=== PATIENT | female | born 1945 | race Caucasian/White ===

== ENCOUNTER → 2024-05-13 10:22 | Outpatient (REF) | payer MEDICARE, OTHER, SELFPAY ==
[2024-05-13 11:01] LABS: % Basophils 0.6 % (0-2); % Eosinophils 1.3 % (0-6); % Immature Granulocytes 0.3 % (0-0.5); % Lymphocytes 24.4 % (20.5-51.1); % Monocytes 8.2 % (1.7-9.3); % Neutrophils 65.2 % (42.2-75.2); Absolute Eosinophils 0.1 10^3/uL (0-0.7); Absolute Lymphocytes 1.7 10^3/uL (1.2-3.4); Absolute Monocytes 0.6 10^3/uL (0.1-0.6); Absolute Neutrophils 4.5 10^3/uL (1.4-6.5); Hematocrit 37.9 % (37.0-47.0); Hemoglobin 12.9 g/dL (12.0-16.0); Mean Corpuscular Hgb 33.5 pg (27.0-31.0); Mean Corpuscular Volume 98.4 fL (81.0-99.0); Mean Platelet Volume 9.4 fL (7.4-10.4); Nucleated Red Blood Cells % 0 %; Platelet Count 254 10^3/uL (130-400); Red Blood Cell Count 3.85 10^6/uL (4.20-5.40); Red Cell Dist. Width 13.5 % (11.5-14.5)
[2024-05-13 11:09] LABS: INR 1.52; PT 18.4 Sec (11.4-14.6)
[2024-05-13 11:15] LABS: ALT (SGPT) 15 U/L (0-35); AST (SGOT) 24 U/L (14-36); Albumin 4.2 g/dl (3.5-5.0); Alkaline Phosphatase 65 U/L (38-126); Blood Urea Nitrogen 15 mg/dl (7-17); Calcium 9.4 mg/dl (8.4-10.2); Carbon Dioxide 27 mmol/L (22-30); Chloride 101 mmol/L (98-107); Glucose 102 mg/dl (70-99); Magnesium 1.9 mg/dl (1.6-2.3); Potassium 4.2 mmol/L (3.5-5.1); Sodium 136 mmol/L (135-145); Total Bilirubin 0.5 mg/dl (0.2-1.3); Total Protein 6.6 g/dl (6.3-8.2); eGFR > 60.00
== END ==
LOC: SDSPAT 10:22
PROVIDERS: ATTENDING PHYSICIAN Internal Medicine Cardiovascular Disease; FAMILY PHYSICIAN Nurse Practitioner Primary Care
DX: Z01.818 Encounter for other preprocedural examination (principal); I47.10 Supraventricular tachycardia, unspecified
CPT/HCPCS: 36415; 80053; 83735; 85025; 85610; 93005

== ENCOUNTER 2024-05-20 09:01 | Day surgery (SDC) | payer MEDICARE, OTHER, SELFPAY ==
[2024-05-20 09:39] LABS: PT 25.2 Sec (11.4-14.6)
[2024-05-20 10:06] VITALS: BMI 21.4
== END 2024-05-20 11:37 | disposition home or self-care (01) ==
LOC: CATH 09:01
PROVIDERS: ATTENDING PHYSICIAN Internal Medicine Cardiovascular Disease; FAMILY PHYSICIAN Nurse Practitioner Primary Care
DX: I08.1 Rheumatic disorders of both mitral and tricuspid valves (principal); I48.0 Paroxysmal atrial fibrillation; I10 Essential (primary) hypertension; E78.5 Hyperlipidemia, unspecified; E03.9 Hypothyroidism, unspecified; Z85.048 Personal history of other malignant neoplasm of rectum, rectosigmoid junction, and anus; Z79.01 Long term (current) use of anticoagulants
CPT/HCPCS: 93312; 93320; 93325; 85610

== ENCOUNTER 2024-05-22 07:56 | Day surgery (SDC) | payer MEDICARE, OTHER, SELFPAY ==
[2024-05-13 10:39] VITALS: BMI 21.9
[2024-05-22] VITALS (9 sets, daily range): BP systolic 119–153; BP diastolic 49–71; BMI 21.3
[2024-05-22 08:59] LABS: INR 1.07; PT 13.9 Sec (11.4-14.6)
[2024-05-22 11:57] LABS: ACT-LR - POC 271 Seconds (116-155)
[2024-05-22 13:05] LABS: ACT-LR - POC 390 Seconds (116-155)
--- NOTE | 2024-05-22 14:27 | ITS.CL.ABL ---
Telephone Appointment Clerk - Ablation
Ablation
Procedure Report:
ELECTROPHYSIOLOGY STUDY REPORT
Date of Procedure: May 22, 2024
Primary Care Provider: Dr Laly Dickens
Primary keno terminal operator: Dr Wendy Fink
INDICATION: SVT.
HISTORY:
Her history has included symptomatic SVT as well as symptomatic AF, poorly controlled with attempted medical therapy.
She had an EP study in [place] several years ago (2016) where she was noninducible. She then underwent EP study with us at [place] and again was noninducible for sustained arrhythmias but based on a tracing of her SVT (Outpatient rhythm
monitoring in 08/2019 demonstrated an episode of narrow QRS complex tachycardia at 220 bpm which lasted 27 minutes. There were no clearly discernible P waves. There was abrupt initiation and abrupt termination) and based on the finding of dual AV
zahida physiology she underwent slow pathway modification.
She did well for quite some time but then developed tachycardia symptoms. She underwent implantation of a loop recorder which documented atrial tachycardia as well as sustained self-terminating atrial fibrillation.She was started on beta-nino at
a dose of Toprol-XL 25 mg daily and was also placed on Eliquis. Due to ongoing symptoms she was placed on flecainide 50 mg twice daily. She continued to have disturbing symptoms and presents today for EP study and evaluation of her SVT. She
thought that this resulted in her feeling more anxious and she dropped the Toprol-XL to 12.5 mg daily. Evaluation of her loop recorder has subsequently showed 11 episodes of tachycardia the longest of which is 53 minutes (atrial tachycardia) as well
as 8 minutes of true atrial fibrillation in June 2023 which prompted the initiation of Eliquis 5 mg twice daily.
She then underwent EP study in October 29, 2023. PVI was completed and there were no inducible arrhythmias after PVI. Since that time she has developed recurrence of rapid heart beating sensation with her implanted monitor showing no atrial
fibrillation but demonstrating periods of atrial tachycardia.
She presents today for EP study evaluating her atrial tachycardia.
BASELINE RHYTHM: Sinus rhythm
PROCEDURE:
HRA, HIS, RVA and CS catheters were placed.
Baseline intracardiac measurements were obtained in sinus rhythm.
Programmed electrical stimulation was performed including burst pacing as well as delivery of decremental extrastimuli from the HRA, CS and RVA.
In the baseline state with delivery of atrial decremental extrastimuli short nonsustained bursts of atrial tachycardia (up to 6 beats) could be induced. Atrial cycle length during the short burst of atrial tachycardia is irregular, averaging
approximately 450 ms, periods of 2-1 AV conduction as well as dissociation from the His bundle electrogram excluding AV zahida dependent arrhythmia and consistent with an atrial tachycardia.
Isoproterenol infusion was begun and escalated and programmed electrical stimulation was repeated. Still only short burst of atrial tachycardia could be obtained. 3-D mapping with the [employer] multipolar grid catheter finds earliest atrial
activation at the interatrial septum slightly posterior and superior to the ostium of the coronary sinus. She then began having self initiating longer runs of atrial tachycardia again with the earliest activation at the right atrial interatrial
septum. Was then decided to perform transseptal puncture and evaluate left atrial activation. The intracardiac ultrasound catheter was positioned in the RA for continuous intracardiac ultrasound imaging.
Heparin bolus and infusion to target ACT at 300 -350 seconds was administered. Transseptal puncture was performed. This entailed advancing a sheath with dilator into the superior vena cava and withdrawing both (monitoring intracardiac ultrasound,
fluoroscopy and tip pressure) with the tip oriented toward the atrial septum. The fossa ovalis was engaged (indicated by sudden displacement of the sheath tip as well as tenting of the fossa seen on intracardiac ultrasound). Left atrial access
required a pass with the Brock[place]rough needle extended. Left atrial catheter position was confirmed by pressure monitoring as well as fluoroscopy. The sheath was advanced over the dilator and positioned in the left atrium. The multipolar mapping
catheter was initially positioned through the transseptal sheath for high density mapping. There continue to be self initiated and self terminating bursts of atrial tachycardia but inability to reliably induce any arrhythmias. With the self
initiating burst of atrial tachycardia limited mapping could be performed and demonstrated earliest left atrial activation at the interatrial septum across from the right atrial site. Comparison of activation mapping finds earliest activation at
the right atrium compared to the left atrium. At this location is certainly possible it could be noncoronary cusp of the aortic valve. Consideration was given to mapping the aortic valve however the self initiating episodes of atrial tachycardia
ceased. Programmed electrical stimulation was again performed on and off escalating dose isoproterenol and still no atrial tachycardia could be induced. At this point it was decided to ablate both the left and right atrial aspects of the mapped
atrial tachycardia. A 4 mm irrigated contact sensing RF ablation catheter was then substituted for the mapping catheter and RF energy was delivered to the early left atrial site. (Additionally, while mapping the left atrium, integrity of pulmonary
vein isolation was performed. There is ostial isolation of all the pulmonary veins. ). The catheters were removed from the left atrium and the right atrium was once again mapped creating a high density His cloud. Earliest left atrial activation
is approximately 0.5 to 1 cm just superior and posterior to the His cloud. RF energy was given at escalating power at the area of earliest right atrial activation of the mapped tachycardia. With RF energy delivery initially there are bursts of
atrial tachycardia but with continued RF energy delivery to this area no further burst of atrial tachycardia were observed. Careful attention was paid to A-V conduction and at no point was there any prolongation of the KS interval or AV block.
Once ablation was completed programmed electrical stimulation was again performed and no arrhythmias sustained or unsustained could be induced. There were no further runs of self initiated atrial tachycardia.
I.C.E. :
Pre-Ablation Post-Ablation
LVEF: 55 % 55 %
WMA: none none
Pericardial effusion: none none
COMPLICATIONS: None
SUMMARY:
- EPS with CS catheter
- EPS with drug infusion
- Transeptal puncture
- 3-d mapping
- Mapping/ablate SVT
- I.C.E.
There is poorly inducible atrial tachycardia. Inability to reliably induce the atrial tachycardia limited mapping and limits reliability with which success can be determined post ablation.
While ablation was performed at the left atrial and right atrial aspects of the interatrial septum and the tachycardia remained on inducible, it is possible the atrial tachycardia origin is the noncoronary cusp of the aortic valve but given
inability to induce the tachycardia and disappearance of spontaneous runs of atrial tachycardia, aortic valve mapping could not be performed.
RECOMMENDATIONS:
-Maintain beta-nino and flecainide at current doses
If there is recurrence of atrial arrhythmias given difficulty with inducing the tachycardia my recommendation would be either up titration of flecainide or consideration for sotalol
-Stop warfarin as she has not had any documented atrial fibrillation post ablation and mapping today finds durability of pulmonary vein ostial isolation nearly 8 months after her PVI.
Copy to:
Dr Laly Dickens
Dr Wendy Fink
[2024-05-22 15:09] LABS: ACT-LR - POC > 397 Seconds (116-155)
[2024-05-22 15:09] LABS: ACT-LR - POC > 397 Seconds (116-155)
== END 2024-05-22 17:35 | disposition home or self-care (01) ==
LOC: CATH 07:56
PROVIDERS: ATTENDING PHYSICIAN Internal Medicine Cardiovascular Disease; FAMILY PHYSICIAN Nurse Practitioner Primary Care
DX: I47.19 Other supraventricular tachycardia (principal); I48.0 Paroxysmal atrial fibrillation; I10 Essential (primary) hypertension; E78.5 Hyperlipidemia, unspecified; E03.9 Hypothyroidism, unspecified; Z85.048 Personal history of other malignant neoplasm of rectum, rectosigmoid junction, and anus; Z79.01 Long term (current) use of anticoagulants
CPT/HCPCS: 93662; C1732; C1730; C1894; C1766; C2630; C1892; 76937; 85347; 85610; 93005; 93462; 93623; 93653

== ENCOUNTER → 2024-09-24 06:39 | Day surgery (SDC) | payer MEDICARE, OTHER, SELFPAY | LOC: GI 06:39 | PROVIDERS: ATTENDING PHYSICIAN Student in an Organized Health Care Education/Training Program | DX: Z12.11 Encounter for screening for malignant neoplasm of colon (principal); Z85.048 Personal history of other malignant neoplasm of rectum, rectosigmoid junction, and anus; K57.30 Diverticulosis of large intestine without perforation or abscess without bleeding; K64.4 Residual hemorrhoidal skin tags; D12.2 Benign neoplasm of ascending colon | CPT/HCPCS: 45385; 88305 ==

== ENCOUNTER → 2024-10-18 10:29 | Outpatient (REF) | payer MEDICARE, OTHER, SELFPAY | LOC: MRI 10:29 | PROVIDERS: ATTENDING PHYSICIAN Nurse Practitioner Primary Care | DX: Z85.048 Personal history of other malignant neoplasm of rectum, rectosigmoid junction, and anus (principal); R47.89 Other speech disturbances; R41.3 Other amnesia | CPT/HCPCS: 70551 ==

== ENCOUNTER → 2024-10-23 13:42 | Outpatient (REF) | payer MEDICARE, OTHER, SELFPAY | LOC: HWWDC 13:42 | PROVIDERS: ATTENDING PHYSICIAN Nurse Practitioner Primary Care | DX: M85.80 Other specified disorders of bone density and structure, unspecified site (principal); Z12.31 Encounter for screening mammogram for malignant neoplasm of breast; E78.2 Mixed hyperlipidemia; M81.0 Age-related osteoporosis without current pathological fracture | CPT/HCPCS: 75571 ==

== ENCOUNTER → 2025-08-06 07:30 | Outpatient (REF) | payer MEDICARE, OTHER, SELFPAY | LOC: REG 07:30 | PROVIDERS: ATTENDING PHYSICIAN Nurse Practitioner Primary Care | DX: R82.90 Unspecified abnormal findings in urine (principal); R73.01 Impaired fasting glucose; E78.2 Mixed hyperlipidemia; I11.0 Hypertensive heart disease with heart failure; I36.9 Nonrheumatic tricuspid valve disorder, unspecified; Z79.899 Other long term (current) drug therapy | CPT/HCPCS: 36415; 93005 ==

== ENCOUNTER → 2025-09-03 09:59 | Outpatient (REF) | payer MEDICARE, OTHER, SELFPAY ==
[2025-09-03 10:32] LABS: Hematocrit 39.3 % (37.0-47.0); Hemoglobin 13.4 g/dL (12.0-16.0); Mean Corp Hgb Conc. 34.1 g/dL (33.0-37.0); Mean Corpuscular Volume 97.0 fL (81.0-99.0); Nucleated Red Blood Cells % 0 %; Platelet Count 300 10^3/uL (130-400); Red Cell Dist. Width 12.7 % (11.5-14.5)
[2025-09-03 10:59] LABS: ALT (SGPT) 14 U/L (0-35); AST (SGOT) 21 U/L (14-36); Albumin 4.3 g/dl (3.5-5.0); Alkaline Phosphatase 67 U/L (38-126); Blood Urea Nitrogen 10 mg/dl (7-17); Calcium 9.6 mg/dl (8.4-10.2); Carbon Dioxide 30 mmol/L (22-30); Chloride 100 mmol/L (98-107); Glucose 87 mg/dl (70-99); Potassium 4.9 mmol/L (3.5-5.1); Sodium 132 mmol/L (135-145); Total Protein 7.0 g/dl (6.3-8.2); eGFR > 60.00
== END ==
LOC: SDSPAT 09:59
PROVIDERS: ATTENDING PHYSICIAN Internal Medicine Cardiovascular Disease; FAMILY PHYSICIAN Nurse Practitioner Primary Care
DX: I47.10 Supraventricular tachycardia, unspecified (principal)
CPT/HCPCS: 36415; 80053; 85025; 93005

== ENCOUNTER 2025-09-23 12:30 | Day surgery (SDC) | payer MEDICARE, OTHER, SELFPAY ==
[2025-09-03 10:08] VITALS: BMI 19.7
[2025-09-23] VITALS (9 sets, daily range): BP systolic 115–162; BP diastolic 52–103; BMI 19.7
[2025-09-23] MEDS: VANCOCIN 200 IV (14:43)
--- NOTE | 2025-09-23 14:56 | ITS.CL.PACE ---
Senior Biostatistician/Group Leader - Pacemaker Implant
Pacemaker Implant
Procedure Report:
PACEMAKER IMPLANT REPORT
Primary Care Provider: Dr. Laly Schmid
Date of Procedure: September 23, 2025
Procedure:
Implantation of dual-chamber permanent pacemaker utilizing the left bundle branch for conduction system pacing
Indication/Diagnosis:
Non-reversible symptomatic bradycardia due to sinus node dysfunction.
HISTORY:
Recurrent symptomatic atrial tachyarrhythmias despite prior ablation. Symptomatic 6 sinus syndrome with up to 5 seconds symptomatic pauses has limited drug therapy attempts to control her atrial arrhythmias. This is included need to discontinue
flecainide as well as beta-nino which has resulted in worsened symptoms of atrial tachyarrhythmia. Clinically she has symptomatic sick sinus syndrome.
After informed consent was obtained, 'time out' was called and confirmed, the patient was prepped and draped in a sterile fashion. Lidocaine with epi was used for local anesthesia. Central venous access was obtained via subclavian venipuncture. An
incision was made along the left chest and a pre-pectoral pocket was formed. Using a Seldinger technique and peel-away sheaths, the pacing leads were placed under fluoroscopic guidance.
Fluoroscopy was used to determine likely anatomic site for left bundle branch pacing. The Medtronic C315 sheath was used to deliver the Medtronic 3830 Selectsecure pacing lead with the helix exposed just exposed from the sheath tip during continuous
monitoring when pacemapping the septum during gentle clockwise rotation to obtain a paced QRS morphology of a W pattern in lead V1. Once the suspected optimal site was identified, lead deployment was performed with several rapid rotations as paced
QRS morphology was intermittently monitored until a paced QRS complex in lead V1 demonstrated development of an R wave (qR).
Unipolar pacing impedance dropped by approximately 100-200 ohms suggesting it had reached the left ventricular subendocardium.
Stable VEgm injury current is present throughout final lead position including at end of case, suggesting there was no perforation through the septum into the LV cavity.
Unipolar pacing impedance is 800 Ohms
Unipolar pacing threshold is stable at 1.5 V @ 0.4 ms.
Final conduction system paced QRS complex duration is 100 ms
LVAT is 74 ms and peak V5 -> peak V1 timing is 35 ms
There is QRS transition to LVSP / selective LBBP during threshold testing
Right atrial lead was placed at the RAA.
Once testing (see below) showed adequate and stable function, the leads were secured using the suture sleeves. The pocket was liberally irrigated with antibiotic solution. The leads were connected to the generator header and the leads and
generator were placed within the pocket. Fluoroscopy confirmed stable lead position. The pocket was closed in the typical fashion.
Fluoroscopy was used to guide lead placement.
IMPLANTS:
Medtronic [id number], SN: [id number], Left Pectoral
RA: Medtronic 5076-45, SN: [id number], RAA
Left Bundle: Medtronic 3830 , SN:[id number], Interventricular septum at LBB
DEVICE TESTING:
Sensing: RA 1.6 mV, RV 8 mV
Capture: RA 1.25 V@0.4ms, RV 1 V@0.4ms
Ohms: RA 760, RV 670
FINAL PROGRAMMING
Ryan Pacing: AAIR+ 50-130 ppm
COMPLICATIONS:
None
CONCLUSIONS:
Successful implant of dual chamber permanent pacemaker utilizing Left Bundle Branch conduction system capture for ventricular resynchronization pacing.
RECOMMENDATIONS:
Reinitiate flecainide 50 mg twice daily and Toprol-XL 25 mg daily
Post-op care (tele, CXR, IV abx)
In-Office wound check in 5-7 days
Copy to:
Dr. Laly Schmid
--- NOTE | 2025-09-23 16:46 | ITS.CL.IMPLP ---
Microbiology Soil Scientist - Implant Loop
Implant Loop
Procedure Report:
LINQ IMPLANTED MONITOR REMOVAL
Date of Procedure: 09/23/2025
Primary Care Provider: Dr. Laly Schmid
PROCEDURES:
1. Removal of implanted loop recorder
INDICATION FOR PROCEDURE:
Loop Recorder has diagnosed symptomatic sick sinus syndrome with pauses of 5 seconds.
Permanent pacemaker has been implanted.
Loop recorder is no longer providing additional information.
After informed consent was obtained,'time out' was called and confirmed, the patient was prepped and draped in a sterile fashion.
SEDATION: Via the anesthesia department with conscious sedation
Lidocaine with epi was used for local anesthesia. An incision was made along the prior incision and the Linq monitor was carefully dissected from the pocket. The pocket was liberally irrigated with antibiotic solution. The pocket was closed in
the typical fashion.
COMPLICATIONS:
None
CONCLUSIONS:
1. Removal of implanted loop recorder.
RECOMMENDATIONS:
In-Office wound check in 7-14 days.
Copy to:
Primary Care Provider: Dr. Laly Schmid
--- NOTE | 2025-09-23 18:17 | PTCARENOTE ---
Received patient from the freezer laboratory technician after PPM left upper chest. Patient assisted from the stretcher to the bathroom and voided qs. CXR and EKG completed in recovery area. Pressure dressing left upper chest is dry and intact with immobilizer in place.
Resting in bed now, waiting for her to bring dinner, call el in reach.
[2025-09-23] MEDS: AZACTAM 2000 MG IV (18:50)
[2025-09-23] MEDS: TAMBOCOR 50 MG PO (19:45)
[2025-09-23] MEDS: ARICEPT PO (20:23)
[2025-09-23] MEDS: VALTREX 500 MG PO (22:50)
[2025-09-23] MEDS: TYLENOL 650 MG PO (22:50)
--- NOTE | 2025-09-23 23:55 | PTCARENOTE ---
Assumed care of patient at change of shift. Pt AAOx3 and forgetful at times. Tele shows SB-SR w/ occasional PVCs and Atrial paced. HR in the 50-60's at rest. Patient has pain at the surgical site, PRN Tylenol administered at 22:50. Left anterior
chest dressing w/ small drainage and pressure dressing present. Left arm remains in immobilizer. Educated patient and pts spouse Morales in regards to activity restrictions. Pt verbalized understanding. Left chest dressing from old loop recorder site,
remains intact. Ambulates self in room w/out difficulty. Reviewed POC w/ patient, call el within reach.
[2025-09-24 03:29] VITALS: BP 116/50
[2025-09-24 04:05] LABS: Hematocrit 35.4 % (37.0-47.0); Hemoglobin 12.1 g/dL (12.0-16.0); Mean Corp Hgb Conc. 34.2 g/dL (33.0-37.0); Mean Corpuscular Volume 96.2 fL (81.0-99.0); Platelet Count 228 10^3/uL (130-400); Red Cell Dist. Width 12.8 % (11.5-14.5)
[2025-09-24 04:26] LABS: Blood Urea Nitrogen 12 mg/dl (7-17); Calcium 8.5 mg/dl (8.4-10.2); Carbon Dioxide 25 mmol/L (22-30); Chloride 109 mmol/L (98-107); Estimated Creatinine Clearance 60 ml/min; Glucose 82 mg/dl (70-99); Magnesium 1.9 mg/dl (1.6-2.3); Potassium 4.4 mmol/L (3.5-5.1); Sodium 135 mmol/L (135-145); eGFR > 60.00
[2025-09-24] MEDS: SYNTHROID 100 MCG PO (05:59)
[2025-09-24 07:50] VITALS: BP 101/90
[2025-09-24] MEDS: COZAAR 100 MG PO (09:12)
[2025-09-24] MEDS: TAMBOCOR 50 MG PO (09:13)
[2025-09-24] MEDS: ZOLOFT 100 MG PO (09:14)
[2025-09-24] MEDS: TOPROL XL 25 MG PO (09:14)
[2025-09-24] MEDS: ARICEPT 10 MG PO (09:16)
--- NOTE | 2025-09-24 10:16 | W.PN.CARDCBS ---
Addendum entered and electronically signed by Dean Pederson MD 09/24/25 10:28:
Patient seen and examined
Agree with GRID MOLDER note and assessment
Agree with GRID MOLDER plan
Reviewed telemetry demonstrating appropriate atrial sensing and pacing as well as appropriate ventricular sensing
Personally reviewed chest x-ray and ECG demonstrating stable lead positions from implant
Examination:
HEENT normocephalic atraumatic
JVP 6
Cor regular no murmurs
Site clean dry and intact with dressing intact
Lungs are diminished but clear
Abdomen soft nontender
Nonfocal neurologically
Primary Care Provider: Dr. Laly Schmid
Primary looping inspector: Wendy Fink MD
79 yo WF with recurrent symptomatic atrial tachyarrhythmias despite prior ablation. Symptomatic 6 sinus syndrome with up to 5 seconds symptomatic pauses has limited drug therapy attempts to control her atrial arrhythmias. This is included need to
discontinue flecainide as well as beta-nino which has resulted in worsened symptoms of atrial tachyarrhythmia. Clinically she has symptomatic sick sinus syndrome.
Impression:
Symptomatic SSS
PAF post PVI 10/2023
PAT post AT ablation 05/2024
recurrent Atrial tachycardia
post DC PPM LABBP and loop explant 09/23/25
HTN
Hyperlipidemia
Hypothyroidism
cognitive deficit/mild dementia
anorectal cancer 2004, chemo/XRT
Anxiety
Plan:
post PPM and loop explant
site stable with marked old drainage
CXR no PTX, leads in good position
tele Apaced HR 50-130bpm
Will resume flecainide 50mg bid and Toprol 25mg daily
Activity restrictions reviewed
inc check 1 week at [facility]
home today
Original Note:
Today's Communication / Plan
-
post PPM and loop explant
resume flecainide and toprol
stable for d/c home today
Impression / Plan
-
Primary Care Provider: Dr. Laly Schmid
Primary looping inspector: Wendy Fink MD
79 yo WF with recurrent symptomatic atrial tachyarrhythmias despite prior ablation. Symptomatic 6 sinus syndrome with up to 5 seconds symptomatic pauses has limited drug therapy attempts to control her atrial arrhythmias. This is included need to
discontinue flecainide as well as beta-nino which has resulted in worsened symptoms of atrial tachyarrhythmia. Clinically she has symptomatic sick sinus syndrome.
Impression:
Symptomatic SSS
PAF post PVI 10/2023
PAT post AT ablation 05/2024
recurrent Atrial tachycardia
post DC PPM LABBP and loop explant 09/23/25
HTN
Hyperlipidemia
Hypothyroidism
cognitive deficit/mild dementia
anorectal cancer 2003, chemo/XRT
Anxiety
Plan:
post PPM and loop explant
site stable with marked old drainage
CXR no PTX, leads in good position
tele Apaced HR 50-130bpm
Will resume flecainide 50mg bid and Toprol 25mg daily
Activity restrictions reviewed
inc check 1 week at [facility]
home today
Progress Note - Abalone Fisherman
Subjective
Date of Service: September 24, 2025
denies cp, sob, mild inc pain
Objective
Labs:
09/24/25 03:41
09/24/25 03:41
Labs
Hgb 12.1 g/dL (12.0-16.0) 09/24/25 03:41
Hct 35.4 % (37.0-47.0) L 09/24/25 03:41
Plt Count 228 10^3/uL (130-400) 09/24/25 03:41
Sodium 135 mmol/L (135-145) 09/24/25 03:41
Potassium 4.4 mmol/L (3.5-5.1) 09/24/25 03:41
BUN 12 mg/dl (7-17) 09/24/25 03:41
Creatinine 0.6 mg/dL (0.6-1.0) 09/24/25 03:41
Glucose 82 mg/dl (70-99) 09/24/25 03:41
Vital Signs and I&O:
Vital Signs
Temp Pulse Resp BP Pulse Ox
98.2 F 50 20 101/90 96
09/24/25 07:50 09/24/25 08:00 09/24/25 07:50 09/24/25 07:50 09/24/25 03:28
Vital Signs
Temp Pulse Resp BP Pulse Ox
98.2 F 50 20 101/90 96
09/24/25 07:50 09/24/25 08:00 09/24/25 07:50 09/24/25 07:50 09/24/25 03:28
Intake & Output
09/22/25 09/23/25 09/24/25 09/25/25
06:59 06:59 06:59 06:59
Intake Total 360 / 360
Balance 360 / 360
Physical Exam
Physical Exam
NAD, AOx3
S1, s2, RRR, no murmur
CTAB, non labored, no wheeze
SNTND bsx4
L CW site with old marked drainage, no HT
--- NOTE | 2025-09-24 11:10 | PTCARENOTE ---
Scant drainage noted on aquacel dressing, left upper chest. Patient seen by cardiology and is ok for discharge. Reviewed activity restrictions, follow up appointments, wound care and medications with the patient and her and they state their
understanding. patient discharged home with her .
--- NOTE | 2025-09-24 13:10 | W.DS.TRANS ---
DC Summary - Test Clerk
-
Discharge Instructions:
Sleep Apnea Risk Low
Discharge Diagnosis/Procedures Pacemaker implant and loop explant
Diet Low Cholesterol
Driving Restrictions No driving for 1 week
Bathing Restrictions OK to Shower
Instructions:
Stand-Alone Forms: DC Inst - Implanted Device
Changes to Home Medications: Yes
Discharge Medications:
DC Medications w/original date entered in Telemetry[facility]
progesterone micronized 100 mg capsule 100 mg PO HS 09/09/19
levothyroxine 100 mcg tablet 100 mcg PO DAILY 05/29/23
cyanocobalamin (vitamin B-12) 1,000 mcg tablet (Vitamin B-12) 1,000 mcg PO DAILY 09/02/25
estradiol 0.1 mg/24 hr semiweekly transdermal patch 1 patch transdermal SUTH 09/02/25
donepezil 10 mg tablet 10 mg PO DAILY 09/03/25
losartan 100 mg tablet 100 mg PO DAILY 09/03/25
sertraline 50 mg tablet 100 mg PO DAILY 09/03/25
valacyclovir 500 mg tablet 500 mg PO HS 09/03/25
flecainide 50 mg tablet 50 mg PO Q12 #1 tab 09/24/25
metoprolol succinate 25 mg tablet,extended release 24 hr 25 mg PO DAILY #1 tab 09/24/25
Home Medication Changes
new to flecainide and metoprolol
Pending Results: No
[2025-09-24 19:31] LABS: Hepatitis C Antibody Negative (Negative)
== END 2025-09-24 10:30 | disposition home or self-care (01) ==
LOC: CATH 12:30
PROVIDERS: Nurse Practitioner Adult Health; ATTENDING PHYSICIAN Internal Medicine Cardiovascular Disease; FAMILY PHYSICIAN Nurse Practitioner Primary Care
DX: I49.5 Sick sinus syndrome (principal); I48.0 Paroxysmal atrial fibrillation; I47.19 Other supraventricular tachycardia; Z79.899 Other long term (current) drug therapy; R00.2 Palpitations; I48.91 Unspecified atrial fibrillation; I10 Essential (primary) hypertension; E78.5 Hyperlipidemia, unspecified; F03.A4 Unspecified dementia, mild, with anxiety; M85.80 Other specified disorders of bone density and structure, unspecified site; E03.9 Hypothyroidism, unspecified; Z92.21 Personal history of antineoplastic chemotherapy; Z92.3 Personal history of irradiation; Z85.048 Personal history of other malignant neoplasm of rectum, rectosigmoid junction, and anus; B00.9 Herpesviral infection, unspecified; E53.8 Deficiency of other specified B group vitamins; E55.9 Vitamin D deficiency, unspecified; Z79.890 Hormone replacement therapy; Z88.0 Allergy status to penicillin; I49.1 Atrial premature depolarization; Z90.710 Acquired absence of both cervix and uterus; Z98.890 Other specified postprocedural states
CPT/HCPCS: 33208; 33286; 71045; 80048; 83735; 85027; 86803; 93005; C1769; C1785; C1887; C1898

== ENCOUNTER → 2025-10-09 10:56 | Outpatient (REF) | payer MEDICARE, OTHER, SELFPAY | LOC: RAD 10:56 | PROVIDERS: ATTENDING PHYSICIAN Nurse Practitioner Family; FAMILY PHYSICIAN Nurse Practitioner Primary Care | DX: R51.9 Headache, unspecified (principal) | CPT/HCPCS: 70450 ==

== ENCOUNTER → 2025-10-14 06:48 | Outpatient (REF) | payer MEDICARE, OTHER, SELFPAY ==
[2025-10-14 07:54] LABS: Hematocrit 41.0 % (37.0-47.0); Hemoglobin 13.5 g/dL (12.0-16.0); Mean Corp Hgb Conc. 32.9 g/dL (33.0-37.0); Mean Corpuscular Volume 97.2 fL (81.0-99.0); Nucleated Red Blood Cells % 0 %; Platelet Count 283 10^3/uL (130-400); Red Cell Dist. Width 13.2 % (11.5-14.5)
[2025-10-14 08:02] LABS: ALT (SGPT) 19 U/L (0-35); AST (SGOT) 25 U/L (14-36); Albumin 4.5 g/dl (3.5-5.0); Alkaline Phosphatase 65 U/L (38-126); Blood Urea Nitrogen 17 mg/dl (7-17); Calcium 9.8 mg/dl (8.4-10.2); Carbon Dioxide 29 mmol/L (22-30); Chloride 104 mmol/L (98-107); Glucose 87 mg/dl (70-99); HDL Cholesterol 73 mg/dl; LDL Cholesterol, Calculated 141 mg/dl; Potassium 5.0 mmol/L (3.5-5.1); Sodium 137 mmol/L (135-145); Total Protein 7.3 g/dl (6.3-8.2); Very Low Density Lipoprotein 29 mg/dl (0-30); eGFR > 60.00
[2025-10-14 08:36] LABS: TSH 1.97 uIU/ml (0.47-4.68)
[2025-10-14 10:20] LABS: Vitamin D, 25-OH*** 40.1 ng/mL (30-80)
[2025-10-14 11:23] LABS: Syphilis/T. pallidum Ab Reflex Negative (Negative)
[2025-10-14 13:21] LABS: Lyme Antibody Screen, EIA Negative (Negative)
== END ==
LOC: REG 06:48
PROVIDERS: ATTENDING PHYSICIAN Nurse Practitioner Primary Care
DX: I48.0 Paroxysmal atrial fibrillation (principal); E03.9 Hypothyroidism, unspecified; F02.A4 Dementia in other diseases classified elsewhere, mild, with anxiety; E78.2 Mixed hyperlipidemia; E55.9 Vitamin D deficiency, unspecified
CPT/HCPCS: 36415; 80053; 80061; 82306; 84439; 84443; 85025; 85652; 86618; 86780